=== PATIENT | female | born 1990 | race Caucasian/White ===

== ENCOUNTER 2017-08-02 22:24 | Emergency (ER) | payer OTHER ==
[2017-08-02 22:47] VITALS: RESP 20
[2017-08-02 22:50] LABS: HCG,QUALITATIVE URINE NEGATIVE (NEGATIVE)
[2017-08-02 22:55] LABS: SQUAMOUS EPITHIAL 7 /hpf (0-5); URINE BACTERIA RARE (<OCC); URINE BILIRUBIN NEGATIVE (NEGATIVE); URINE BLOOD 2+ (NEGATIVE); URINE CLARITY Hazy (Clear); URINE COLOR Yellow (YELLOW); URINE GLUCOSE (UA) NORMAL (Normal); URINE LEUKOCYTE ESTERASE NEGATIVE Leu/uL (Negative); URINE NITRATE NEGATIVE (NEGATIVE); URINE PROTEIN NEGATIVE (NEGATIVE); URINE UROBILINOGEN NORMAL mg/dL (0.2-1.0)
[2017-08-02] MEDS ORDERED: Sodium Chloride 0.9% 1,000 ML IV ONE ×2 (23:26)
[2017-08-02] MEDS ORDERED: Iohexol 240 (50 ml) PO ONE (23:28)
--- NOTE | 2017-08-02 23:29 | C.PDOC ---
Chief Complaint (Nursing): Abdominal Pain Past Medical History Vital Signs: Last Vital Signs Temp 98.6 F 08/02/17 22:45 Pulse 107 H 08/02/17 22:45 Resp 20 08/02/17 22:45 BP 156/97 H 08/02/17 22:45 Pulse Ox 95 08/02/17 22:45 - Medical History PMH: Kidney Stones, Chronic Kidney Disease Family History: States: Unknown Family Hx - Social History Hx Tobacco Use: No Hx Alcohol Use: Yes Hx Substance Use: No - Immunization History Hx Tetanus Toxoid Vaccination: No Hx Influenza Vaccination: No Hx Pneumococcal Vaccination: No ED Course And Treatment O2 Sat by Pulse Oximetry: 95 Disposition - Disposition
--- NOTE | 2017-08-02 23:30 | C.PDOC ---
History Of Present Illness 26yo female, presents to ER with complaints of abdominal pain since yesterday and associated with diarrhea and vomiting. Patient states pain is present mostly in the left lower quadrant area. She denies any dysuria or hematuria. No other complaints. Time Seen by Provider: 08/02/17 23:20 Chief Complaint (Nursing): Abdominal Pain History Per: Patient History/Exam Limitations: no limitations Onset/Duration Of Symptoms: Days Current Symptoms Are (Timing): Still Present Location Of Pain/Discomfort: LLQ Associated Symptoms: Nausea, Vomiting Past Medical History Reviewed: Historical Data, Nursing Documentation, Vital Signs Vital Signs: Last Vital Signs Temp 98.6 F 08/02/17 22:45 Pulse 87 08/03/17 02:05 Resp 20 08/03/17 02:05 BP 122/60 08/03/17 02:05 Pulse Ox 95 08/03/17 03:50 - Medical History PMH: Kidney Stones, Chronic Kidney Disease Surgical History: No Surg Hx Family History: States: Unknown Family Hx - Social History Hx Tobacco Use: No Hx Alcohol Use: Yes Hx Substance Use: No - Immunization History Hx Tetanus Toxoid Vaccination: No Hx Influenza Vaccination: No Hx Pneumococcal Vaccination: No Review Of Systems Except As Marked, All Systems Reviewed And Found Negative. Constitutional: Negative for: Fever, Chills Cardiovascular: Negative for: Chest Pain Respiratory: Negative for: Shortness of Breath Gastrointestinal: Positive for: Nausea, Vomiting, Abdominal Pain Genitourinary: Negative for: Dysuria, Hematuria Physical Exam - Physical Exam Appears: Non-toxic, Other (mild painful distress) Skin: Normal Color, Warm, Dry Head: Normacephalic Eye(s): bilateral: Normal Inspection Neck: Normal ROM, Supple Chest: Symmetrical Cardiovascular: Rhythm Regular Respiratory: Normal Breath Sounds, No Wheezing Gastrointestinal/Abdominal: Soft, Tenderness (left upper and lower quadrant tenderness), No Guarding, No Rebound, Other (obese abdomen) Neurological/Psych: Oriented x3, Normal Speech, Normal Cognition ED Course And Treatment - Laboratory Results Result Diagrams: 08/02/17 23:33 08/02/17 23:33 O2 Sat by Pulse Oximetry: 95 (RA) Pulse Ox Interpretation: Normal Medical Decision Making Medical Decision Making: Impression: Abdominal pain Plan: -- CT Abdomen with PO & IV Contrast -- Labs -- IV Fluids -- Bentyl 20mg IM -- Toradol 30mg IVP -- Zofran 4mg IVP Time: 314 EXAM: CT Abdomen and Pelvis With Intravenous Contrast CLINICAL HISTORY: 26 years old, female; Pain; Abdominal pain; Patient HX: 06-16-16; Additional info : Left sided abd pain TECHNIQUE: Axial computed tomography images of the abdomen and pelvis with intravenous contrast. All CT scans at this facility use one or more dose reduction techniques, viz.: automated exposure control; ma/kV adjustment per patient size (including targeted exams where dose is matched to indication; i.e. head); or iterative reconstruction technique. Coronal and sagittal reformatted images were created and reviewed. CONTRAST: 100 mL of [id number] administered intravenously. COMPARISON: CT - ABD PELVIS W/O PO OR IV CONT 2016-06-16 20:34 FINDINGS: Lower thorax: Minimal atelectasis/scarring. ABDOMEN: Liver: Fatty infiltration. Gallbladder and bile ducts: No calcified stones. No ductal dilation. Pancreas: No ductal dilation. No mass. Spleen: No splenomegaly. Adrenals: No mass. Kidneys and ureters: Few too small to characterize lesions within RIGHT kidney. No hydronephrosis. Stomach and bowel: No definite mural thickening. No obstruction. Appendix: Normal caliber. No inflammation. PELVIS: Bladder: Unremarkable. Reproductive: Unremarkable as visualized. ABDOMEN and PELVIS: Intraperitoneal space: No significant fluid collection. No free air. Bones/joints: No acute fracture. Soft tissues: Unremarkable. Vasculature: Unremarkable. No aneurysm. Lymph nodes: No pathologically enlarged lymph nodes. IMPRESSION: 1. No definite acute intraabdominal abnormality. 2. Incidental/non-acute findings are described above. Disposition Counseled Patient/Family Regarding: Diagnosis - Disposition Referrals: [facility] [Outside] Disposition: HOME/ ROUTINE Disposition Time: 03:44 Condition: STABLE Prescriptions: Nitrofurantoin Macrocrystals [Macrobid] 1 cap PO BID #14 cap Phenobarb/Hyoscy/Atropine/Scop [ Tablet] 16.2 mg PO Q6 #10 tablet Instructions: Urinary Tract Infections in Adults, Acute Abdomen (Belly Pain), Adult (DC) Forms: [facility] (Mongolian), Gen Discharge Inst German Print Language: CROATIAN - POA Present On Arrival: None - Clinical Impression Clinical Impression: Abdominal pain, Urinary tract infection - Scribe Statement The provider has reviewed the documentation as recorded by the Scribe (Vi Mack) Provider Attestation: All medical record entries made by the Nikoibroshni were at my direction and personally dictated by me. I have reviewed the chart and agree that the record accurately reflects my personal performance of the history, physical exam, medical decision making, and the department course for this patient. I have also personally directed, reviewed, and agree with the discharge instructions and disposition.
[2017-08-02] MEDS ORDERED: Iohexol 240 (50 ml) ONE (23:35)
[2017-08-02 23:36] LABS: BASO # 0.1 K/uL (0.0-0.2); BASO % 0.7 % (0.0-2.0); EOS # 0.2 K/uL (0.0-0.7); EOS % 2.4 % (0.0-4.0); HEMOGLOBIN 15.1 g/dL (11.0-16.0); LYMPH % 33.1 % (20.0-40.0); MEAN CELL VOLUME 89.6 fL (81.0-99.0); MEAN CORPUSCULAR HEMOGLOBIN 30.8 pg (27.0-31.0); MEAN CORPUSCULAR HGB CONC 34.3 g/dL (33.0-37.0); MEAN PLATELET VOLUME 8.2 fL (7.2-11.7); MONO # 0.5 K/uL (0.0-0.8); MONO % 5.2 % (0.0-10.0); NEUT # 5.3 K/uL (1.8-7.0); NEUT % 58.6 % (50.0-75.0); NRBC % 0.1 % (0.0-2.0); RBC 4.92 Mil/uL (3.80-5.20); RED CELL DISTRIBUTION WIDTH 12.9 % (11.5-14.5)
[2017-08-02] MEDS ORDERED: Sodium Chloride 0.9% 1,000 ML ONE (23:36)
[2017-08-02 23:47] LABS: ALB/GLOB RATIO 1.2 (1.0-2.1); ALBUMIN 4.1 g/dL (3.5-5.0); ALT/SGPT 34 U/L (9-52); AST/SGOT 24 U/L (14-36); BLOOD UREA NITROGEN 14 mg/dL (7-17); GFR AFRICAN-AMERICAN > 60; GFR NON-AFRICAN AMERICAN > 60; LIPASE 233 U/L (23-300)
[2017-08-03] MEDS ORDERED: Iodixanol 320 MG/ML 100 ML BOTTLE IV ONE (01:05)
--- NOTE | 2017-08-03 03:15 | CT ---
EXAM: CT Abdomen and Pelvis With Intravenous Contrast CLINICAL HISTORY: 26 years old, female; Pain; Abdominal pain; Patient HX: 06-16-16; Additional info: Left sided abd pain TECHNIQUE: Axial computed tomography images of the abdomen and pelvis with intravenous contrast. All CT scans at this facility use one or more dose reduction techniques, viz.: automated exposure control; ma/kV adjustment per patient size (including targeted exams where dose is matched to indication; i.e. head); or iterative reconstruction technique. Coronal and sagittal reformatted images were created and reviewed. CONTRAST: 100 mL of [id number] administered intravenously. COMPARISON: CT - ABD PELVIS W/O PO OR IV CONT 2016-06-16 20:34 FINDINGS: Lower thorax: Minimal atelectasis/scarring. ABDOMEN: Liver: Fatty infiltration. Gallbladder and bile ducts: No calcified stones. No ductal dilation. Pancreas: No ductal dilation. No mass. Spleen: No splenomegaly. Adrenals: No mass. Kidneys and ureters: Few too small to characterize lesions within RIGHT kidney. No hydronephrosis. Stomach and bowel: No definite mural thickening. No obstruction. Appendix: Normal caliber. No inflammation. PELVIS: Bladder: Unremarkable. Reproductive: Unremarkable as visualized. ABDOMEN and PELVIS: Intraperitoneal space: No significant fluid collection. No free air. Bones/joints: No acute fracture. Soft tissues: Unremarkable. Vasculature: Unremarkable. No aneurysm. Lymph nodes: No pathologically enlarged lymph nodes. IMPRESSION: 1. No definite acute intraabdominal abnormality. 2. Incidental/non-acute findings are described above.
[2017-08-03 04:29] VITALS: BP 110/67; PULSE 91; TEMP 98.1; O2SAT 96
== END 2017-08-03 04:29 | disposition home or self-care (01) ==
LOC: C.ER 22:24
DX: N39.0 Urinary tract infection, site not specified (principal); R10.32 Left lower quadrant pain
CPT/HCPCS: 74177; 80053; 81001; 83690; 84703; 85025; 96361; 96372; 96374; 96375; 96376; 99285; J0500; J1885; J2405; J7040; Q9966; Q9967

== ENCOUNTER 2018-08-09 15:22 | Emergency (ER) | payer OTHER ==
[2018-08-09 15:32] VITALS: TEMP 98.2
[2018-08-09] MEDS ORDERED: Sodium Chloride 0.9% 500 ML IV ONE (15:59)
[2018-08-09] MEDS ORDERED: Sodium Chloride 0.9% 1,000 ML ONE (16:23)
[2018-08-09 16:37] LABS: EOS % 0.3 % (0.0-4.0); HEMOGLOBIN 15.3 g/dL (11.0-16.0); LYMPH # 1.3 K/uL (1.0-4.3); LYMPH % 14.1 % (20.0-40.0); MEAN CELL VOLUME 91.3 fL (81.0-99.0); MEAN CORPUSCULAR HEMOGLOBIN 30.3 pg (27.0-31.0); MEAN CORPUSCULAR HGB CONC 33.2 g/dL (33.0-37.0); MEAN PLATELET VOLUME 8.2 fL (7.2-11.7); MONO # 0.3 K/uL (0.0-0.8); MONO % 3.1 % (0.0-10.0); NEUT # 7.8 K/uL (1.8-7.0); NEUT % 82.5 % (50.0-75.0); RBC 5.04 Mil/uL (3.80-5.20); RED CELL DISTRIBUTION WIDTH 12.8 % (11.5-14.5); WHITE BLOOD COUNT 9.4 K/uL (4.8-10.8)
[2018-08-09 16:44] LABS: HCG,QUALITATIVE URINE NEGATIVE (NEGATIVE)
[2018-08-09 16:50] LABS: SQUAMOUS EPITHIAL 5 /hpf (0-5); URINE BILIRUBIN NEGATIVE (NEGATIVE); URINE BLOOD 3+ (NEGATIVE); URINE CLARITY Hazy (Clear); URINE COLOR Red (YELLOW); URINE GLUCOSE (UA) 1+ mg/dL (Normal); URINE LEUKOCYTE ESTERASE TRACE Leu/uL (Negative); URINE PROTEIN 2+ mg/dL (NEGATIVE); URINE UROBILINOGEN NORMAL mg/dL (0.2-1.0)
--- NOTE | 2018-08-09 16:50 | RAD ---
Date of service: 08/09/2018 PROCEDURE: CHEST RADIOGRAPH, 1 VIEW HISTORY: SOB COMPARISON: None available. FINDINGS: LUNGS: The lungs are well inflated and clear. PLEURA: No pneumothorax or pleural effusion. CARDIOVASCULAR: The heart is normal in size. No aortic atherosclerotic calcifications present. OSSEOUS STRUCTURES: Within normal limits for the patient's age. VISUALIZED UPPER ABDOMEN: Normal. OTHER FINDINGS: None. IMPRESSION: No active pulmonary disease.
[2018-08-09 17:02] LABS: ALB/GLOB RATIO 1.6 (1.0-2.1); ALBUMIN 4.3 g/dL (3.5-5.0); ALT/SGPT 32 U/L (9-52); AST/SGOT 39 U/L (14-36); BLOOD UREA NITROGEN 12 mg/dL (7-17); CALCIUM 9.2 mg/dl (8.6-10.4); GFR NON-AFRICAN AMERICAN > 60
[2018-08-09 17:11] LABS: CK-MB 0.51 ng/mL (0.0-3.38)
[2018-08-09 17:27] VITALS: RESP 20
--- NOTE | 2018-08-09 18:13 | C.PDOC ---
History Of Present Illness 27 year old female presents to ED with complaint of lip tingling, swelling, and itching that occurerd approx 45 minutes [employer]. She also complains of associated mild SOB and chest pain. Patient admits to having multiple food allergies - nuts, seafood, tomatoes, broccoli. She denies eating anything unusual last night , had steak for dinner. Patient has a PMHx of POC, kidney stones, and pre- diabetes. Patient states that she took 50 mg of Benadryl before coming to the ED. Patient denies cough, fever, palpitations, sensation of throat closing, rashes. Time Seen by Provider: 08/09/18 15:51 Chief Complaint (Nursing): Chest Pain History Per: Patient History/Exam Limitations: no limitations Onset/Duration Of Symptoms: Mins (45) Current Symptoms Are (Timing): Still Present Associated Symptoms: denies: Dyspnea Past Medical History Reviewed: Historical Data, Nursing Documentation, Vital Signs Vital Signs: Last Vital Signs Temp 98.2 F 08/09/18 15:29 Pulse 76 08/09/18 17:26 Resp 20 08/09/18 17:26 BP 142/58 L 08/09/18 17:26 Pulse Ox 100 08/09/18 17:26 - Medical History PMH: Kidney Stones, Chronic Kidney Disease Surgical History: No Surg Hx Family History: States: No Known Family Hx - Social History Hx Tobacco Use: No Hx Alcohol Use: Yes Hx Substance Use: No - Immunization History Hx Tetanus Toxoid Vaccination: No Hx Influenza Vaccination: No Hx Pneumococcal Vaccination: No Review Of Systems Constitutional: Negative for: Fever, Chills, Weakness ENT: Positive for: Mouth Swelling (lip tingling, swelling, and itching). Negative for: Other (sensation of throat closing) Cardiovascular: Positive for: Chest Pain. Negative for: Palpitations Respiratory: Positive for: Shortness of Breath. Negative for: Cough Gastrointestinal: Negative for: Nausea, Vomiting, Abdominal Pain, Diarrhea Skin: Negative for: Rash Neurological: Negative for: Weakness, Numbness, Dizziness Physical Exam - Physical Exam Appears: Well, Non-toxic, No Acute Distress, Other (speaking in full sentences ) Skin: Normal Color, Warm, Dry, No Rash Head: Normacephalic Oral Mucosa: Moist Tongue: Normal Appearing, No Swelling Lips: Swelling (mild swelling of the upper lip and lower lip (lower>upper) ) Throat: Normal, No Erythema, No Exudate, No Drooling, Other (uvula midline and normal in appearance ) Neck: Normal ROM, Supple Chest: Symmetrical, No Deformity Cardiovascular: Rhythm Regular, Other (tachycardic) Respiratory: Normal Breath Sounds, No Rales, No Rhonchi, No Stridor, No Wheezing Gastrointestinal/Abdominal: Normal Exam, Bowel Sounds, Soft, No Tenderness Neurological/Psych: Oriented x3, Other (speaking full sentences) ED Course And Treatment - Laboratory Results Result Diagrams: 08/09/18 16:23 08/09/18 16:23 Lab Results: Troponin I < 0.0120 ng/mL (0.00-0.120) 08/09/18 16:23 Total Bilirubin 0.6 mg/dL (0.2-1.3) 08/09/18 16:23 AST 39 U/L (14-36) H D 08/09/18 16:23 ALT 32 U/L (9-52) 08/09/18 16:23 Alkaline Phosphatase 45 U/L (38-126) 08/09/18 16:23 Total Protein 7.1 g/dL (6.3-8.3) 08/09/18 16:23 Albumin 4.3 g/dL (3.5-5.0) 08/09/18 16:23 Globulin 2.8 gm/dL (2.2-3.9) 08/09/18 16:23 Albumin/Globulin Ratio 1.6 (1.0-2.1) 08/09/18 16:23 Urine Color Red (YELLOW) 08/09/18 16:23 Urine Clarity Hazy (Clear) 08/09/18 16:23 Urine pH 6.0 (5.0-8.0) 08/09/18 16:23 Ur Specific [place] 1.024 (1.003-1.030) 08/09/18 16:23 Urine Protein 2+ mg/dL (NEGATIVE) H 08/09/18 16:23 Urine Glucose (UA) 1+ mg/dL (Normal) 08/09/18 16:23 Urine Ketones Trace mg/dL (NEGATIVE) 08/09/18 16:23 Urine Blood 3+ (NEGATIVE) H 08/09/18 16:23 Urine Nitrate Positive (NEGATIVE) H 08/09/18 16:23 Urine Bilirubin Negative (NEGATIVE) 08/09/18 16:23 Urine Urobilinogen Normal mg/dL (0.2-1.0) 08/09/18 16:23 Ur Leukocyte Esterase Trace Nyla/uL (Negative) 08/09/18 16:23 Urine WBC (Auto) 26 /hpf (0-5) H 08/09/18 16:23 Urine RBC (Auto) 5876 /hpf (0-3) H 08/09/18 16:23 Ur Squamous Epith Cells 5 /hpf (0-5) 08/09/18 16:23 Urine HCG, Qual Negative (NEGATIVE) 08/09/18 16:23 Urine HCG, Qual Negative (NEGATIVE) 08/09/18 16:23 ECG: Interpreted By Me, Viewed By Me (sinus tachycardia 101 bpm, normal axis, no acute ST/T wave changes) ECG Interpretation: No Acute Changes O2 Sat by Pulse Oximetry: 100 (RA) Pulse Ox Interpretation: Normal - Other Rad CXR X-Ray: Interpreted by Me, Viewed By Me Interpretation: IMPRESSION: No active pulmonary disease. Progress Note: Blood work, UA, Upreg, EKG and CXR ordered and reviewed. Patient given IV solumedrol, IV pepcid, IV NS bolus. Reevaluation Time: 18:45 Reassessment Condition: Improved (On reassessment, patient is resting comfortably and states she feels better. Lip swelling has improved, and patient has no SOB/drooling/stridor. Vitals are WNL. Rxs for prednisone and benadryl given. Patient instructed to follow up with PMD in 1-2 days, and understands she should return to ED if symptoms worsen.) Disposition Counseled Patient/Family Regarding: Studies Performed, Diagnosis, Need For Followup, Rx Given - Disposition Referrals: Tristan Boyle MD, PhD [Staff Provider] - Disposition: HOME/ ROUTINE Disposition Time: 18:45 Condition: STABLE Additional Instructions: FOLLOW UP WITH YOUR DOCTOR IN 1-2 DAYS USE MEDICATION DIRECTED RETURN TO ER IF SYMPTOMS WORSEN Prescriptions: DiphenhydrAMINE [Benadryl] 25 mg PO Q6 PRN #20 cap PRN Reason: Itching / Pruritus predniSONE [predniSONE Tab] 40 mg PO DAILY #6 tab Instructions: Hives, Food Allergy Forms: [facility] (Arabic), Work Excuse Print Language: MALTESE - Clinical Impression Clinical Impression: Allergic reaction - Scribe Statement The provider has reviewed the documentation as recorded by the Scribe (Clary Blanchard) All medical record entries made by the Scribe were at my direction and personally dictated by me. I have reviewed the chart and agree that the record accurately reflects my personal performance of the history, physical exam, medical decision making, and the department course for this patient. I have also personally directed, reviewed, and agree with the discharge instructions and disposition.
[2018-08-09 19:02] VITALS: BP 121/74; PULSE 74
--- NOTE | 2018-08-12 12:55 | CARD ---
APPROVED REPORT Date of service: 08/09/2018 EKG Measurement Heart [id number] IN [id number] [id number] <Conclusion> Sinus tachycardia T wave abnormality, consider inferior ischemia Abnormal ECG
[2018-08-22 02:03] VITALS: O2SAT 100
== END 2018-08-09 19:02 | disposition home or self-care (01) ==
LOC: C.ER 15:22
DX: T78.40XA Allergy, unspecified, initial encounter (principal); X58.XXXA Exposure to other specified factors, initial encounter
CPT/HCPCS: 71045; 80053; 81001; 82550; 82553; 84484; 84703; 85025; 93005; 96361; 96374; 96375; 99285; J2930; J7040